=== PATIENT | female | born 1955 ===

== ENCOUNTER 2018-12-24 15:45 | Emergency (ER) | payer OTHER ==
[2018-12-24 16:08] VITALS: BP 134/88
[2018-12-24] MEDS ORDERED: LoraTADine TAB(NF) 10 MG TAB (AUTOSUB to CETIRIZINE) PO ONE (16:33)
--- NOTE | 2018-12-24 17:53 | UC ---
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 PATIENT IS EXTREMELY ANXIOUS ABOUT POSSIBLE INFECTION OR ALLERGIC REACTION THAT MIGHT DEVELOP. RIGHT NOW THERE IS NO PAIN, ITCHINESS OR LESION. VERY FAINT AREA OF REDNESS AT BITE SITE. - History of Current Complaint Chief Complaint: UCSkin Time Seen by Provider: 12/24/18 16:33 Stated Complaint: INSECT BITE Hx Obtained From: Patient Onset/Duration: Sudden Onset, Lasting Minutes, Still Present Timing: Constant Onset Severity: Mild Current Severity: Mild Pain Intensity: 0 Pain Scale Used: 0-10 Numeric Aggravating Factor(s): Nothing Alleviating Factor(s): Nothing Associated Signs & Symptoms: Positive: Negative Related History: Insect Bite/Sting - Allergy/Home Medications Allergies/Adverse Reactions: Allergies Allergy/AdvReac Type Severity Reaction Status Date / Time latex Allergy See Comment Verified 12/24/18 16:05 PMH/Surg Hx/FS Hx/Imm Hx Cardiovascular History: Hypertension Other History Of: Hepatitis C - Surgical History Surgical History: None - Family History Known Family History: Positive: None - Social History Alcohol Use: Occasionally Substance Use Type: None Smoking Status (MU): Never Smoked Tobacco Review of Systems All Other Systems Reviewed And Are Negative: Yes Constitutional: Positive: Negative Skin: Positive: Other - SPIDER BITE LEFT ANTERIOR NECK Respiratory: Positive: Negative Cardiovascular: Positive: Negative Gastrointestinal: Positive: Negative Physical Exam Triage Information Reviewed: Yes Appearance: Well-Appearing, No Pain Distress, Well-Nourished Vital Signs: Initial Vital Signs Temp 98.1 F 12/24/18 16:00 Pulse 77 12/24/18 16:00 Resp 18 12/24/18 16:00 BP 134/88 12/24/18 16:00 Pulse Ox 99 12/24/18 16:00 Vital Signs Reviewed: Yes Eyes: Positive: Conjunctiva Clear ENT: Positive: Hearing grossly normal Neck: Positive: Supple, Nontender, No Lymphadenopathy Respiratory: Positive: No respiratory distress, No accessory muscle use Cardiovascular: Positive: Pulses Normal Abdomen Description: Positive: Soft Musculoskeletal: Positive: No Edema Neurological: Positive: Alert Psychological: Positive: Age Appropriate Behavior Skin: Positive: Other - SPIDER BITE SITE LEFT ANTERIOR NECK WITH EXTREMELY FAINT REDNESS ABOUT 3MM ACROSS. NOT TENDER. NOT SWOLLEN. NO INDURATION Course/Dx - Course Course Of Treatment: SPIDER BITE SITE BARELY IDENTIFIABLE WITH EXTREMELY FAINT AREA OF REDNESS. NOT TENDER, NO DRAINAGE, NO SWELLING, NOT ITCHY. PATIENT HERE FOR REASSURANCE. NO EVIDENCE OF INFECTION OR ALLERGIC REACTION AT PRESENT. COUNSELED ON SIGNS AND SYMPTOMS OF INFECTION. PATIENT STATES SHE TENDS TO HAVE ALLERGIC REACTIONS TO INSECT BITES SO 10 MG OF LORATADINE GIVEN HERE IN THE UC . I ADVISED HER TO CONTINUE TAKING AN ANTIHISTAMINE DAILY FOR THE NEXT COUPLE OF DAYS UNTIL SHE IS SURE SHE IS NOT HAVING ANY REACTION. ADVISED IT WOULD BE OKAY TO PUT OTC ANTIBIOTIC OINTMENT TO THE AREA FOR A FEW DAYS IF SHE IS WORRIED ABOUT INFECTION. - Diagnoses Provider Diagnosis: Spider bite Discharge ED - Sign-Out/Discharge Documenting (check all that apply): Patient Departure All imaging exams completed and their final reports reviewed: No Studies - Discharge Plan Condition: Stable Disposition: HOME Patient Education Materials: Insect Bite or Sting (ED) Referrals: Ting Holden MD [Primary Care Provider] - If Needed Additional Instructions: NO ACUTE INTERVENTION INDICATED FOR YOUR SPIDER BITE TODAY. THERE IS NO SUGGESTION OF ALLERGIC REACTION OR INFECTION AT PRESENT. OKAY TO PUT A THIN LAYER OF BACITRACIN ANTIBIOTIC OINTMENT TO THE AREA 2-3 TIMES DAILY FOR A COUPLE OF DAYS AND APPLY A COOL PACK. YOU RECEIVED 10MG LORATADINE TODAY TO COVER FOR ANY ALLERGY. SEEK FOLLOW-UP IF YOU DEVELOP SPREADING REDNESS OF THE SKIN, PURULENT DRAINAGE, FEVER, INCREASED PAIN OR ANY OTHER CONCERNING SYMPTOMS. - Billing Disposition and Condition Condition: STABLE Disposition: Home
== END 2018-12-24 16:52 | disposition home or self-care (01) ==
LOC: UCEAST 15:45
DX: T63.301A Toxic effect of unspecified spider venom, accidental (unintentional), initial encounter (principal); Y92.9 Unspecified place or not applicable; F41.9 Anxiety disorder, unspecified; I10 Essential (primary) hypertension; B19.20 Unspecified viral hepatitis C without hepatic coma; Z91.040 Latex allergy status
CPT/HCPCS: 99212; A9270-GY; G0463